=== PATIENT | male | born 1935 | race Two or more races ===

== ENCOUNTER → 2019-09-25 | Outpatient (CLI) | payer OTHER, MEDICAID ==
[2019-09-25 13:12] LABS: Folate (Folic Acid) > 24.00 ng/mL (5.38-24)
== END | disposition home or self-care (01) ==
LOC: LAB 11:40
PROVIDERS: ATTEND Psychiatry & Neurology Neurology
DX: M60.9 Myositis, unspecified (principal); F03.90 Unspecified dementia, unspecified severity, without behavioral disturbance, psychotic disturbance, mood disturbance, and anxiety
CPT/HCPCS: 36415; 82550; 82607; 82746; 84155; 84165; 84443; 85652; 86038

== ENCOUNTER 2019-11-07 09:29 | Inpatient (IN) | payer OTHER, MEDICAID ==
[~2019-11-07] VITALS: Ht 172.7 cm; Wt 73.6 kg
[2019-11-07 10:13] LABS: Basophils # (auto) 0 10 ^3/uL (0-0.2); Basophils % (auto) 0.5 % (0.0-2.0); Eosinophils # (auto) 0.1 10 ^3/uL (0-0.8); Hematocrit 47.1 % (41.0-53.0); Hemoglobin 15.6 g/dL (13.5-17.5); Lymphocytes # (auto) 1.3 10 ^3/uL (0.4-5.4); Lymphocytes % (auto) 17.8 % (10.0-50.0); Mean Corpuscular Hemoglobin 29.3 pg (28.0-32.0); Mean Corpuscular Hgb Conc. 33.1 g/dL (32.0-36.0); Mean Corpuscular Volume 88.5 fL (80.0-100.0); Monocytes # (auto) 0.6 10 ^3/uL (0-1.3); Monocytes % (auto) 8.8 % (0.0-12.0); Neutrophils # (auto) 5.2 10 ^3/uL (1.6-8.6); Neutrophils % (auto) 70.9 % (37.0-80.0); Nucleated Red Blood Cells % 0.1 %; Platelet Count (auto) 164 10^3/uL (140-450); Red Blood Cells 5.32 10^6/uL (4.5-5.90); Red Cell Distribution Width 15.2 % (11.8-14.3); White Blood Cell 7.3 10^3/uL (4.4-10.8)
[2019-11-07 10:29] LABS: Albumin 3.9 g/dL (3.4-5.0); Anion Gap 6 (5-15); Blood Urea Nitrogen 26 mg/dL (7-18); Calcium 8.8 mg/dL (8.5-10.1); Carbon Dioxide 28 mmol/L (21-32); Chloride 104 mmol/L (98-107); Glucose 112 mg/dL (74-106); Magnesium 2.3 mg/dL (1.6-2.6); Potassium 4.2 mmol/L (3.5-5.1); Sodium 138 mmol/L (136-145)
[2019-11-07 10:36] LABS: Alanine Aminotransferase 26 U/L (16-61); Alkaline Phosphatase 71 U/L (45-117); Aspartate Aminotransferase 21 U/L (15-37); BUN/Creatinine Ratio 30.2; Bilirubin, Total 0.9 mg/dL (0.2-1.0); GFR African American 109 mL/min; GFR Non-African American 90 mL/min; Total Protein 7.8 g/dL (6.4-8.2)
[2019-11-07 12:28] LABS: Urine Bacteria NONE SEEN /hpf (None Seen); Urine Blood 2+ /uL (Negative); Urine Mucus FEW (None Seen); Urine Specific Gravity 1.027 (1.001-1.035); Urine WBC 2 /hpf (0 - 3)
[2019-11-07] MEDS ORDERED: SODIUM CHLORIDE 0.9% 1,000 ML IVB ONE (12:34)
[2019-11-07 13:01] LABS: INR 1.07 (0.9-1.15); Partial Thromboplastin Time 26.5 sec (23.64-32.05)
[2019-11-07] MEDS ORDERED: NITROGLYCERIN 0.4 MG SL TAB SL PRN ×2 (16:30→20:00)
[2019-11-07] MEDS ORDERED: MORPHINE SULF INJ 2 MG/ML SYRINGE 1ML IV PRN ×3 (16:30→20:00)
--- NOTE | 2019-11-07 18:35 | NUR ---
Telemetry admit from ER REGGIE BOUDREAUX admitted to Telemetry unit after SBAR received. Patient oriented to TYLER BRIGHT,RN primary RN, unit, room 279a, bed A, and unit policies regarding patient care and visiting hours. Patient now on continuous telemetry monitoring, tele box #51 and telemetry reading on arrival to unit is sr 80. Patient weighed by bedscale and encouraged to call if they need something. All questions and concerns addressed, patient verbalized understanding. Note:
[2019-11-07 18:49] VITALS: BP 158/88
--- NOTE | 2019-11-07 19:20 | NUR ---
OPENING SHIFT NOTE: Assumed care of patient. Patient awake, alert and oriented X 4. No s/s of SOB or pain. Communicated with the assistance of spanish medical interpreter. Bed in lowest locked position with two side rails raised, bed alarm activated, and call ahumada within reach. Instructed on POC and encouraged to call for assistance, all questions and concerns addressed, patient verbalizes understanding. Will continue to monitor Q1 hr and PRN.
[2019-11-07 20:00] VITALS: BP 150/70
[2019-11-07] MEDS ORDERED: LORazepam 0.5 MG TAB PO PRN (20:00)
[2019-11-07] MEDS ORDERED: HYDROcodone-ACET 5/325MG TAB PO PRN (20:00)
[2019-11-07] MEDS ORDERED: DOCUSATE SOD 100 MG CAP PO PRN (20:00)
[2019-11-07] MEDS ORDERED: DEXTROSE (50%) 50ML SYRG IV PRN (20:00)
[2019-11-07] MEDS ORDERED: ONDANSETRON HCL 4 MG/2 ML VIAL IV PRN (20:00)
[2019-11-07] MEDS ORDERED: ALUM & MAG HYDROX-SIMETH LIQ(MAALOX) 30 ML PO PRN (20:00)
[2019-11-07] MEDS ORDERED: methylPREDNISolone SOD SUCC 40 MG/ML VL IV ONE ×2 (20:15→21:45)
[2019-11-07] MEDS ORDERED: FAMOTIDINE (10MG/ML) 2ML VL IV ONE ×2 (20:15→21:45)
[2019-11-07 20:17] LABS: CRP High Sensitivity 0.06 mg/dL (< 0.3)
[2019-11-07] MEDS ORDERED: LACTULOSE 20Gm/30ML SOLN PO PRN (20:30)
[2019-11-07] MEDS ORDERED: LISINOPRIL 20 MG TAB PO ONE ×2 (20:30→21:45)
[2019-11-07] MEDS: CLOTRIMAZOLE 1 % CREAM 15GM TOP ONE ×2 (20:45→21:24)
[2019-11-07 21:13] LABS: Cholesterol 181 mg/dL (< 200)
[2019-11-07 21:17] LABS: HDL Cholesterol 71 mg/dL (40-59); LDL Cholesterol 108 mg/dL (< 100); Triglycerides 60 mg/dL (< 150)
[2019-11-07] MEDS: PRAMIPEXOLE DIHYDROCHLORIDE MO 0.25 MG TAB PO SCH (21:22)
[2019-11-07] MEDS: ATORVASTATIN 20 MG TAB PO SCH (21:22)
[2019-11-07] MEDS: METOCLOPRAMIDE HCL 10 MG TAB PO SCH (21:22)
[2019-11-07] MEDS: GABAPENTIN 100 MG CAP PO SCH (21:23)
[2019-11-07] MEDS: NAPROXEN 500 MG TAB PO SCH (21:24)
[2019-11-07] MEDS: SODIUM CHLORIDE 0.9% 1,000 ML IV SCH (21:55)
[2019-11-07] MEDS: ACCU-CHEK COMFORT CURVE STRIP VI SCH (21:57)
[2019-11-07] MEDS: INSULIN LANTUS (GLARGINE) 1 /0.01ml (100units/ml) SC SCH (21:59)
[2019-11-07] MEDS: InsuLIN REG 1unit/0.01ml Soln (100units/ml) SC SCH (22:00)
[2019-11-07 22:05] VITALS: BP 150/70
--- NOTE | 2019-11-07 23:10 | NUR ---
Witnessed patient trying to get out of bed, with assistance of chemical research worker reminded him to stay in bed to reduce the risk of falls. Bed in lowest locked position with two side rails raised, bed alarm activated, and call ahumada within reach. Encouraged him to use call ahumada for assistance, patient verbalized understanding. Will continue to monitor.
[2019-11-08] VITALS (8 sets, daily range): BP systolic 124–156; BP diastolic 55–90
[2019-11-08] MEDS: SODIUM CHLORIDE 0.9% 1,000 ML IV SCH ×2 (04:25→12:50)
[2019-11-08 05:50] LABS: Basophils # (auto) 0 10 ^3/uL (0-0.2); Basophils % (auto) 0.2 % (0.0-2.0); Eosinophils # (auto) 0 10 ^3/uL (0-0.8); Hematocrit 41.2 % (41.0-53.0); Hemoglobin 13.8 g/dL (13.5-17.5); Lymphocytes # (auto) 0.5 10 ^3/uL (0.4-5.4); Lymphocytes % (auto) 10.9 % (10.0-50.0); Mean Corpuscular Hemoglobin 29.9 pg (28.0-32.0); Mean Corpuscular Hgb Conc. 33.4 g/dL (32.0-36.0); Mean Corpuscular Volume 89.3 fL (80.0-100.0); Monocytes # (auto) 0.1 10 ^3/uL (0-1.3); Monocytes % (auto) 1.6 % (0.0-12.0); Neutrophils # (auto) 4.4 10 ^3/uL (1.6-8.6); Neutrophils % (auto) 87.3 % (37.0-80.0); Nucleated Red Blood Cells % 0.2 %; Platelet Count (auto) 139 10^3/uL (140-450); Red Blood Cells 4.61 10^6/uL (4.5-5.90); Red Cell Distribution Width 14.8 % (11.8-14.3)
[2019-11-08] MEDS: INSULIN LISPRO (HUMAN) 100 UNITS/ML ML SC SCH ×2 (06:13→12:40)
[2019-11-08] MEDS: InsuLIN REG 1unit/0.01ml Soln (100units/ml) SC SCH ×4 (06:14→22:00)
[2019-11-08] MEDS: PRAMIPEXOLE DIHYDROCHLORIDE MO 0.25 MG TAB PO SCH ×3 (06:20→22:02)
[2019-11-08] MEDS: GABAPENTIN 100 MG CAP PO SCH ×3 (06:20→22:03)
[2019-11-08] MEDS: hydrALAZINE HCL 20 MG/ML VL IV PRN ×2 (06:21→22:00)
[2019-11-08] MEDS: METOCLOPRAMIDE HCL 10 MG TAB PO SCH ×3 (06:21→22:10)
[2019-11-08 06:23] LABS: Albumin 3.5 g/dL (3.4-5.0); Calcium 8.4 mg/dL (8.5-10.1); Magnesium 2.3 mg/dL (1.6-2.6)
[2019-11-08 06:27] LABS: Bilirubin, Total 0.7 mg/dL (0.2-1.0); Phosphorus 2.9 mg/dL (2.5-4.90); Total Protein 6.5 g/dL (6.4-8.2)
[2019-11-08] MEDS: ACCU-CHEK COMFORT CURVE STRIP VI SCH ×4 (06:33→22:00)
--- NOTE | 2019-11-08 07:30 | NUR ---
OPENING SHIFT NOTE ASSUMED CARE OF PT. PT AWAKE AND ALERT X4. RESPIRATIONS NORMAL AND NONLABORED. NO S/S OF DISTRESS. VS STABLE. BED IN LOWEST POSITION WITH CALL LIGHT IN REACH. EDUCATED PT TO CALL FOR ASSISTANCE IF NEEDED. PT VERBALIZED UNDERSTANDING. Signed: 11/08/19 at 929 by Renetta BERNARDO <Co-Signature Required> Co-Signed: 11/08/19 at 929 by Johana Mendez RN
[2019-11-08] MEDS ORDERED: FAMOTIDINE (10MG/ML) 2ML VL IV SCH (10:00)
[2019-11-08] MEDS: ASPirin 81 mg TAB PO SCH (10:16)
[2019-11-08] MEDS: predniSONE 5 MG TAB PO SCH (10:17)
[2019-11-08] MEDS: NAPROXEN 500 MG TAB PO SCH ×2 (10:18→22:03)
[2019-11-08] MEDS: CLOTRIMAZOLE 1 % CREAM 15GM TOP SCH ×2 (10:18→22:00)
[2019-11-08] MEDS: LISINOPRIL 20 MG TAB PO SCH (10:19)
[2019-11-08] MEDS: ENOXAPARIN SOD 40 MG/0.4 ML SYRINGE SC SCH (10:20)
--- NOTE | 2019-11-08 13:48 | NUR ---
POC discussed with Dr. Barfield informed of patient's daughters request for home health. verbalized understanding.
[2019-11-08] MEDS ORDERED: LORazepam 2MG/ML-1ML VIAL IV PRN (14:15)
[2019-11-08] MEDS: SOD CHL 0.45% 1,000 ML IV SCH (16:26)
--- NOTE | 2019-11-08 18:55 | NUR ---
IV removed/IV started IV removed from the RAC with aseptic technique. Dressing applied. Patient tolerated well, no trauma to site. 22g IV started to the RWR with aseptic technique. IV secured and IV education provided to patient via translation. Patient verbalized understanding. Bed in lowest locked position with call light within reach.
--- NOTE | 2019-11-08 19:22 | NUR ---
Opening shift note: Assumed care of patient. Patient is awake, alert and oriented x 4. No s/s of SOB or distress, communicated with the help of director funeral, patient denies pain. Bed is in lowest locked position with two side rails raised, bed alarm activated, and call ahumada within reach. Instructed on POC and encouraged to use call ahuamda, all questions and concerns addressed, patient verbalizes understanding. Will continue to monitor
--- NOTE | 2019-11-08 19:22 | NUR ---
Care endorsed to [facility]. Patient resting in bed with even and unlabored respirations, no distress noted. Fall precautions in place with call light within reach; bed alarm on for safety.
--- NOTE | 2019-11-08 21:15 | NUR ---
Patient attempting to climb out of bed. With assistance of chicken and fish cleaner enforced teaching on the importance of using call ahumada for assistance, patient stated "I need to stand up to go pee." Bed in lowest locked position, two side rails raised, bed alarm activated and call ahumada within reach. Encouraged patient to use call ahumada for assistance, patient verbalized understanding. Will continue to monitor.
[2019-11-08] MEDS: INSULIN LANTUS (GLARGINE) 1 /0.01ml (100units/ml) SC SCH (22:00)
[2019-11-08] MEDS: FAMOTIDINE 20 MG TAB PO SCH (22:02)
[2019-11-08] MEDS: ATORVASTATIN 20 MG TAB PO SCH (22:02)
--- NOTE | 2019-11-08 23:18 | NUR ---
Jensen catheter insertion Patient assessed and determined to be in need of jensen catheter. Order obtained from AIDA Ayala. Patient educated on catheter and reason for insertion. All questions answered. Jensen catheter 16 gauge [place] inserted with clean sterile technique. Patient tolerated well.
--- NOTE | 2019-11-09 04:42 | NUR ---
New IV: 20 gauge IV inserted to the left forearm using clean technique. Patient tolerated well. Will continue to monitor.
[2019-11-09 05:05] VITALS: BP 136/84
[2019-11-09] MEDS: GABAPENTIN 100 MG CAP PO SCH ×2 (06:12→14:09)
[2019-11-09] MEDS: PRAMIPEXOLE DIHYDROCHLORIDE MO 0.25 MG TAB PO SCH ×2 (06:12→14:10)
[2019-11-09] MEDS: METOCLOPRAMIDE HCL 10 MG TAB PO SCH ×2 (06:12→14:09)
[2019-11-09] MEDS: ACCU-CHEK COMFORT CURVE STRIP VI SCH ×3 (06:12→17:00)
[2019-11-09] MEDS: InsuLIN REG 1unit/0.01ml Soln (100units/ml) SC SCH ×3 (06:12→17:00)
--- NOTE | 2019-11-09 08:00 | NUR ---
Morning note Patient resting in bed with even and unlabored respirations, no distress noted. Instructed patient on POC, fall precautions and to call for assistance as needed. Patient verbalized understanding. Fall precautions in place with call light within reach; bed alarm on for safety.
--- NOTE | 2019-11-09 08:35 | NUR ---
Patient off unit to radiology via wheelchair. Respirations even and unlabored, no distress noted. Informed transportation escort of patient's high fall risk. Tech verbalized understanding.
[2019-11-09] MEDS ORDERED: ADENOSINE 62 MG in GIVE UN-DILUTED 0 ML IV STA (08:40)
[2019-11-09 09:00] VITALS: BP 140/76
[2019-11-09] MEDS: CLOTRIMAZOLE 1 % CREAM 15GM TOP SCH (10:00)
[2019-11-09] MEDS: ASPirin 81 mg TAB PO SCH (10:12)
[2019-11-09] MEDS: predniSONE 5 MG TAB PO SCH (10:12)
[2019-11-09] MEDS: FAMOTIDINE 20 MG TAB PO SCH (10:12)
[2019-11-09] MEDS: LISINOPRIL 20 MG TAB PO SCH (10:12)
[2019-11-09] MEDS: NAPROXEN 500 MG TAB PO SCH (10:12)
[2019-11-09] MEDS: ENOXAPARIN SOD 40 MG/0.4 ML SYRINGE SC SCH (10:12)
[2019-11-09] MEDS: SOD CHL 0.45% 1,000 ML IV SCH (12:15)
--- NOTE | 2019-11-09 12:15 | NUR ---
was at bedside - Dr. Barfield.
--- NOTE | 2019-11-09 12:40 | NUR ---
Patient updated on POC through translation Patient verbalized understanding.
--- NOTE | 2019-11-09 13:14 | NUR ---
Patient resting in bed with even and unlabored respirations, no distress noted. Fall precautions in place with call light within reach; bed alarm on for safety.
[2019-11-09 13:22] VITALS: BP 141/81
--- NOTE | 2019-11-09 15:36 | NUR ---
Assessment Patient is an 84-year old male. Assessment was completed by patient daughter Makayla ). Per Makayla prior to admission patient lived with family and functioned with assistance. Per Makayla patient receives SSI and she recently applied for [employer]. Per Makayla patient has a walker and cane for home use. Per Makayla patient will return home to his prior living arrangements post discharge and her brother Danial or herself will transport patient home. Advised Makayla there is a social service consult for home health physical therapy, vitals and medication management. Informed Makayla clinical information will be faxed to [facility]. Informed Makayla she has the right to participate in all discharge planning. Makayla verbalized understanding and agreed to discharge plan. Faxed clinical information to [facility] and [facility] . Vivek Tavera with [facility] patient has been accepted and service to start within 24-48hrs upon d/c day. Obtain authorization from [facility] for home health [id number]. Addendum: 11/09/19 at 1536 by UDAY FLORES Amended: Links added.
[2019-11-09] MEDS ORDERED: DOCU100T15 PO (15:51)
[2019-11-09] MEDS ORDERED: ERTU15TA PO (15:51)
[2019-11-09] MEDS ORDERED: AMLO5TAB15 PO (15:51)
[2019-11-09] MEDS ORDERED: MELO1TAB56 PO (15:51)
[2019-11-09] MEDS ORDERED: ENAL2.5T7 PO (15:51)
[2019-11-09] MEDS ORDERED: LIDO4PAD8 EX (15:51)
[2019-11-09] MEDS ORDERED: INSU1INJ19 SC (15:51)
[2019-11-09] MEDS ORDERED: GLIP5TAB12 PO (15:51)
[2019-11-09] MEDS ORDERED: GABA100C9 PO (15:51)
[2019-11-09] MEDS ORDERED: ATOR10TA PO (15:51)
[2019-11-09] MEDS ORDERED: SITA100T7 PO (15:51)
[2019-11-09] MEDS ORDERED: LOSA-39 PO (15:51)
--- NOTE | 2019-11-09 16:54 | NUR ---
Link catheter discontinued Link catheter discontinued with clean technique after deflation of catheter balloon. Patient tolerated well. 1300ml of clear yellow urine drained from catheter. patient had post-catheter void.
--- NOTE | 2019-11-09 16:55 | NUR ---
Discharge Discharge education and paperwork provided to the patient and patient's son, Danial. Danial verbalized understanding. (2) IV's removed with clean technique, catheters intact. Dressings applied, patient tolerated well. Telemonitor removed and returned. Patient reports having all personal belongings. Patient taken to hospital lobby via wheelchair accompanied by staff member. Respirations even and unlabored, no distress noted. patient transferred to private vehicle with 2-person moderate assistance. No complications.
== END 2019-11-09 16:55 | disposition home health service (06) | DRG 74 ==
LOC: ER 09:29 → TELE 09:30 → TELE-WESTW 18:35
PROVIDERS: ADMIT Hospitalist; ATTEND Internal Medicine
DX: E11.43 Type 2 diabetes mellitus with diabetic autonomic (poly)neuropathy (principal); M87.842 Other osteonecrosis, left hand; E86.0 Dehydration; M35.3 Polymyalgia rheumatica; R91.8 Other nonspecific abnormal finding of lung field; R63.0 Anorexia; M19.90 Unspecified osteoarthritis, unspecified site; I10 Essential (primary) hypertension; E78.5 Hyperlipidemia, unspecified; E11.21 Type 2 diabetes mellitus with diabetic nephropathy; K31.84 Gastroparesis; H81.10 Benign paroxysmal vertigo, unspecified ear; E11.36 Type 2 diabetes mellitus with diabetic cataract; B35.3 Tinea pedis; I44.0 Atrioventricular block, first degree; K21.9 Gastro-esophageal reflux disease without esophagitis; G20 Parkinson's disease; R63.4 Abnormal weight loss; Z79.4 Long term (current) use of insulin; Z68.26 Body mass index [BMI] 26.0-26.9, adult
CPT/HCPCS: 36415; 70450; 70551; 71045; 71250; 73120; 78452; 80053; 80061; 81001; 82550; 82962; 83036; 83735; 84100; 84443; 84484; 85025; 85610; 85652; 85730; 86141; 93005; 93017; 93306; 93886; 96360; 97110; 97530; G0378; J0153; J1815; J3490